=== PATIENT | female | born 1975 | race Caucasian/White ===

== ENCOUNTER 2024-04-17 10:35 | Emergency (ER) | payer OTHER, SELFPAY ==
[2024-04-17 10:42] VITALS: BP 135/75; PULSE 74; RESP 16; TEMP 36.5; O2SAT 100
[2024-04-17 11:03] LABS: EDSTREPNEGPOS1 Negative (Negative)
--- NOTE | 2024-04-17 11:05 | ED.GENADULT ---
HPI - General Adult General Chief complaint: Upper Respiratory Infection Stated complaint: throat Source: patient Mode of arrival: ambulatory Limitations: no limitations History of Present Illness HPI narrative: Pt presents for evaluation of sick symptoms for the past few days. She initially had a scratchy throat . This morning she woke from sleep a sore throat. She reports a low-grade fever and just feeling icky overall. No cough, SOB, otalgia, nausea, vomiting or diarrhea. She tried taking an OTC cough and sinus medication. She does vape. Related Data Allergies Allergy/AdvReac Type Severity Reaction Status Date / Time walnut Allergy Unknown Verified 04/17/24 10:45 Review of Systems Review of Systems: CONSTITUTIONAL: Reports low grade fever. Denies chills, or sweats. EYES: Denies visual changes, redness, or discharge. ENT: Reports sore throat. Denies rhinorrhea, congestion, or otalgia. CARDIOVASCULAR: Denies chest pain, palpitations, or edema. RESPIRATORY: Denies cough or dyspnea. GASTROINTESTINAL: Denies abdominal pain, nausea, vomiting, or diarrhea. GENITOURINARY: Denies dysuria or hematuria. SKIN: Denies rash or itching. MUSCULOSKELETAL: Denies back pain, joint pain, or myalgia. NEUROLOGIC: Denies headache, numbness, dizziness, or weakness. PSYCHIATRIC: Denies anxiety or depression. PMFSH Past Medical History Medical History No pertinent past medical history Surgical History Surgical History History of appendectomy History of cholecystectomy Family History Family History Mother Family history unknown Social History Social History Smoking status: Current every day smoker Tobacco type: e-cigarettes/vaping Gender identity (if verbalized by the patient): Female Spiritual care concerns: No Exam Narrative: GENERAL: Well-appearing, well-nourished, and in no acute distress. HEAD: Normocephalic, atraumatic. EYES: PERRLA and EOMI. ENT: Nares clear, no rhinorrhea or epistaxis. Mucous membranes moist. Oropharynx without tonsillar hypertrophy exudate or other lesions however there is posterior pharyngeal erythema. Bilateral TMs pearly jones nonbulging NECK: Supple. No adenopathy or masses. No carotid bruits or JVD CHEST: Clear to auscultation. No respiratory distress. No wheezes rales or rhonchi HEART: Regular rate and rhythm. No murmur heard. Normal peripheral pulses. ABDOMEN: Soft, nontender, nondistended, normal active bowel sounds. EXTREMITIES: Normal range of motion. No edema. SKIN: Warm, dry, no rash. NEURO: No focal deficits. Alert and oriented x3. PSYCH: Normal mood and affect. Course Course Emergency Course: This is a 48-year-old female who presented for evaluation of a sore throat. Rapid strep negative. Will send throat culture. Through shared decision making opted to proceed with antibiotic therapy. Will dc with amoxicillin. Increase hydration. OTC agents for symptom management. Follow up with primary provider. Go to the emergency department for worsening symptoms. Pt in agreement with plan of care. Level of Care: Express Care Visit Vital Signs Vital signs: Vital Signs Temperature 36.5 C 04/17/24 10:42 Pulse Rate 74 04/17/24 10:42 Respiratory Rate 16 04/17/24 10:42 Blood Pressure 135/75 04/17/24 10:42 Pulse Oximetry 100 04/17/24 10:42 Oxygen Delivery Room Air 04/17/24 10:42 Temperature 36.5 C 04/17/24 10:42 Pulse Rate 74 04/17/24 10:42 Respiratory Rate 16 04/17/24 10:42 Blood Pressure 135/75 04/17/24 10:42 Pulse Oximetry 100 04/17/24 10:42 Oxygen Delivery Room Air 04/17/24 10:42 Medical Decision Making Vital Signs Vital Signs: Vital Signs Temperature 36.5 C 04/17/24 10:42 Pulse Rate 74 04/17/24 10:42 Respiratory Rate 16 04/17/24 10:42 Blood Pressure 135/75 04/17/24 10:42 Pulse Oximetry 100 04/17/24 10:42 Oxygen Delivery Room Air 04/17/24 10:42 Temperature 36.5 C 04/17/24 10:42 Pulse Rate 74 04/17/24 10:42 Respiratory Rate 16 04/17/24 10:42 Blood Pressure 135/75 04/17/24 10:42 Pulse Oximetry 100 04/17/24 10:42 Oxygen Delivery Room Air 04/17/24 10:42 Lab Data Labs: Lab Results 04/17/24 Range/Units 10:44 POC Grp A Strep Screen Negative (Negative) Discharge Plan Discharge Clinical Impression: Pharyngitis Patient Disposition: Home, Self-Care Condition: Stable Instructions: Antibiotic Form, Pharyngitis (ED) Patient Language: Upper Sorbian Prescriptions: New amoxicillin 500 mg tablet 500 mg PO Q12H Qty: 20 0RF Follow-up/Referrals: Maximino Vo MD [Physician] - Time of Disposition: 11:03
== END 2024-04-17 11:07 | disposition home or self-care (01) ==
PROVIDERS: Emergency Provider Nurse Practitioner
DX: J02.9 Acute pharyngitis, unspecified (principal); F17.290 Nicotine dependence, other tobacco product, uncomplicated
CPT/HCPCS: 87081; 87880; 99203; G0463